=== PATIENT | male | born 1990 | race Caucasian/White ===

== ENCOUNTER 2024-03-20 15:18 | Emergency (ER) | payer OTHER ==
[2024-03-20] MEDS: Bupivacaine 0.5% 10 ML SDV INJECT STA (15:59)
== END 2024-03-20 16:22 | disposition home or self-care (01) ==
LOC: MW.ED 15:18
DX: K04.7 Periapical abscess without sinus (principal); Z75.8 Other problems related to medical facilities and other health care; Z79.899 Other long term (current) drug therapy
CPT/HCPCS: 41800; 99283; J0665